=== PATIENT | male | born 1990 | race Two or more races ===

== ENCOUNTER 2017-05-10 21:10 | Emergency (ER) | payer SELFPAY ==
[~2017-05-10] VITALS: Ht 170.2 cm; Wt 81.6 kg
[2017-05-10] MEDS ORDERED: COLACE PO (21:21)
== END 2017-05-10 22:26 | disposition home or self-care (01) ==
LOC: SED 21:10
DX: K64.4 Residual hemorrhoidal skin tags (principal); F17.210 Nicotine dependence, cigarettes, uncomplicated
CPT/HCPCS: 99283